=== PATIENT | male | born 1950 | race Caucasian/White ===

== ENCOUNTER 2020-11-20 19:40 | Inpatient (IN) | payer MEDICARE ==
[~2020-11-20] VITALS: Ht 175.3 cm; Wt 72.0 kg
[2020-11-21 01:02] VITALS: BP 158/86
[2020-11-21 06:07] VITALS: BP 149/75
[2020-11-21 18:14] VITALS: BP 125/67
[2020-11-22 06:02] VITALS: BP 150/82
[2020-11-22 17:07] VITALS: BP 117/64
[2020-11-23 05:51] VITALS: BP 146/75
[2020-11-23 07:20] LABS: ALBUMIN 2.8 g/dL (3.4-4.8); POTASSIUM 4.5 mmol/L (3.5-5.1)
[2020-11-23 07:22] LABS: CALCIUM 9.5 mg/dL (8.3-10.5)
[2020-11-23 07:25] LABS: TOTAL BILIRUBIN 0.3 mg/dL (0.2-1.2)
[2020-11-23 07:29] LABS: MAGNESIUM 2.12 mg/dL (1.60-2.60)
[2020-11-23 17:09] VITALS: BP 138/72
[2020-11-24 06:10] VITALS: BP 122/86
[2020-11-24 17:56] VITALS: BP 142/75
[2020-11-25 05:35] VITALS: BP 150/81
[2020-11-25 17:21] VITALS: BP 135/71
[2020-11-26 05:43] VITALS: BP 155/75
[2020-11-26 17:48] VITALS: BP 141/88
[2020-11-27 05:41] VITALS: BP 144/74
[2020-11-27 18:19] VITALS: BP 127/76
[2020-11-28 06:01] VITALS: BP 167/80
[2020-11-28 17:12] VITALS: BP 143/77
[2020-11-29 05:56] VITALS: BP 146/74
[2020-11-29] MEDS ORDERED: ASPIRIN 81M81 MG/TA2 PEG (15:55)
[2020-11-29] MEDS ORDERED: CHILDREN'S160 MG/15 PEG (15:55)
[2020-11-29] MEDS ORDERED: COREG 6.256.25 MG/TA PEG (15:56)
[2020-11-29] MEDS ORDERED: CHILDREN'S100 MG/55 PEG (15:56)
[2020-11-29] MEDS ORDERED: OXYCODONE H5 MG/5 M2 PEG (15:58)
[2020-11-29] MEDS ORDERED: TURMERIC1 POW PEG (15:59)
[2020-11-29] MEDS ORDERED: B COMPLEX1 EACH PEG (16:00)
[2020-11-29 17:08] VITALS: BP 148/93
[2020-11-30 05:42] VITALS: BP 166/84
[2020-11-30 07:21] LABS: ALBUMIN 3.1 g/dL (3.4-4.8)
[2020-11-30 07:22] LABS: POTASSIUM 3.9 mmol/L (3.5-5.1)
[2020-11-30 07:23] LABS: CALCIUM 9.5 mg/dL (8.3-10.5)
[2020-11-30 07:24] LABS: TOTAL PROTEIN 6.2 g/dL (6.2-8.1)
[2020-11-30 07:26] LABS: TOTAL BILIRUBIN 0.4 mg/dL (0.2-1.2)
[2020-11-30 07:31] LABS: MAGNESIUM 2.05 mg/dL (1.60-2.60)
[2020-11-30 17:03] VITALS: BP 168/78
[2020-12-01 05:42] VITALS: BP 163/75
[2020-12-01 15:49] VITALS: BP 151/71
== END 2020-12-01 17:00 | disposition home health service (06) | DRG 947 ==
LOC: MED/SURG 19:40
PROVIDERS: Internal Medicine; ADMIT Family Medicine
DX: R53.81 Other malaise (principal); E43 Unspecified severe protein-calorie malnutrition; C06.89 Malignant neoplasm of overlapping sites of other parts of mouth; I10 Essential (primary) hypertension; K59.00 Constipation, unspecified; R13.12 Dysphagia, oropharyngeal phase; Z93.1 Gastrostomy status; Z93.0 Tracheostomy status; Z87.891 Personal history of nicotine dependence
CPT/HCPCS: A9270

== ENCOUNTER 2022-10-20 16:10 | Inpatient (IN) | payer MEDICARE ==
[~2022-10-20] VITALS: Ht 175.3 cm; Wt 75.5 kg
[~2022-10-20 16:10] MED LIST: ASPIRIN 81M81 MG/TA2 PEG; B COMPLEX1 EACH PEG; CHILDREN'S100 MG/55 PEG; CHILDREN'S160 MG/15 PEG; COREG 6.256.25 MG/TA PEG; OXYCODONE H5 MG/5 M2 PEG; TURMERIC1 POW PEG
[2022-10-20] MEDS ORDERED: LEVOTHYROXIN0.075 MG PO (18:01)
[2022-10-20] MEDS ORDERED: ACETAMINOPHEN325 M1 PEG (18:02)
[2022-10-20] MEDS ORDERED: BACITRACIN1 EACH TP (18:03)
[2022-10-20] MEDS ORDERED: BISACODYL10 M1 RC (18:03)
[2022-10-20] MEDS ORDERED: STOOL SOFT PEG (18:05)
[2022-10-20] MEDS ORDERED: LEVOFLOXACIN PEG (18:06)
[2022-10-20] MEDS ORDERED: ONDANSETRON HYDR4 MG PEG (18:07)
[2022-10-20 18:10] VITALS: BP 149/80
[2022-10-20 18:34] VITALS: BP 149/80
[2022-10-21 05:39] VITALS: BP 177/88
[2022-10-21 08:26] LABS: HEMATOCRIT 27.8 % (42.0-52.0); HEMOGLOBIN 8.7 g/dL (13.5-18.0); MEAN CELL VOLUME 93 fl (78-100); MEAN CORPUSCULAR HEMOGLOBIN 29 pg (27-31); MEAN CORPUSCULAR HGB CONC 31 g/dL (33-37); MEAN PLATELET VOLUME 9.3 fl (7.4-10.4); PLATELET COUNT 377 K/mm3 (130-400); RED BLOOD COUNT 2.98 M/mm3 (4.20-5.60); RED CELL DISTRIBUTION WIDTH 12.6 % (11.5-14.5); WHITE BLOOD COUNT 11.6 K/mm3 (4.8-10.8)
[2022-10-21 08:41] LABS: ALBUMIN 2.9 g/dL (3.4-4.8)
[2022-10-21 08:42] LABS: POTASSIUM 3.9 mmol/L (3.5-5.1)
[2022-10-21 08:43] LABS: CALCIUM 9.3 mg/dL (8.3-10.5)
[2022-10-21 08:44] LABS: TOTAL PROTEIN 6.5 g/dL (6.2-8.1)
[2022-10-21 08:46] LABS: TOTAL BILIRUBIN 0.3 mg/dL (0.2-1.2)
[2022-10-21 08:56] LABS: PH-URINE 6.5 (5.0 - 8.0); URINE APPEARANCE CLOUDY; URINE BILIRUBIN NEGATIVE (NEGATIVE); URINE BLOOD TRACE (NEGATIVE); URINE COLOR YELLOW; URINE GLUCOSE NEGATIVE (NEGATIVE); URINE KETONE NEGATIVE (NEGATIVE); URINE LEUKOCYTE ESTERASE NEGATIVE (NEGATIVE); URINE NITRATE NEGATIVE (NEGATIVE); URINE PROTEIN(semi-quant) NEGATIVE (NEGATIVE); URINE UROBILINOGEN NORMAL (NORMAL); URINE WBC 0-1 /hpf (0-3)
[2022-10-21 10:00] LABS: BAND 7 % (0-10); HYPOCHROMIA 1+; LYMPHOCYTE 11 % (20-51); MONOCYTE 8 % (3-10); NEUTROPHILS 74 % (42-75); OVALOCYTES 1+; POLYCHROMASIA 1+
[2022-10-21 17:03] VITALS: BP 135/70
[2022-10-22 06:27] VITALS: BP 138/81
[2022-10-22 18:03] VITALS: BP 138/70
[2022-10-23 04:10] VITALS: BP 145/81
[2022-10-23 17:40] VITALS: BP 151/64
[2022-10-24 05:43] VITALS: BP 148/72
[2022-10-24 17:30] VITALS: BP 109/64
[2022-10-25 05:53] VITALS: BP 141/61
[2022-10-25 17:07] VITALS: BP 127/89
[2022-10-26 05:28] VITALS: BP 114/64
[2022-10-26 07:25] LABS: BASO # 0.02 K/mm3 (0.02-0.10); EOS # 0.13 K/mm3 (0.04-0.40); EOS % 1.5 % (0.0-4.0); HEMATOCRIT 24.9 % (42.0-52.0); HEMOGLOBIN 7.8 g/dL (13.5-18.0); LYMPH# 0.75 K/mm3 (1.50-4.00); MEAN CELL VOLUME 92 fl (78-100); MEAN CORPUSCULAR HEMOGLOBIN 29 pg (27-31); MEAN CORPUSCULAR HGB CONC 31 g/dL (33-37); MEAN PLATELET VOLUME 9.2 fl (7.4-10.4); MONO # 0.87 K/mm3 (0.20-0.80); NEU # 6.93 K/mm3 (1.40-6.50); PLATELET COUNT 413 K/mm3 (130-400); RED CELL DISTRIBUTION WIDTH 13.3 % (11.5-14.5); WHITE BLOOD COUNT 8.8 K/mm3 (4.8-10.8)
[2022-10-26 07:29] LABS: ALBUMIN 2.7 g/dL (3.4-4.8)
[2022-10-26 07:30] LABS: POTASSIUM 4.2 mmol/L (3.5-5.1)
[2022-10-26 07:32] LABS: TOTAL BILIRUBIN 0.3 mg/dL (0.2-1.2)
[2022-10-26 17:10] VITALS: BP 114/63
[2022-10-27 05:43] LABS: BASO # 0.02 K/mm3 (0.02-0.10); EOS # 0.09 K/mm3 (0.04-0.40); EOS % 0.8 % (0.0-4.0); HEMATOCRIT 27.2 % (42.0-52.0); HEMOGLOBIN 8.4 g/dL (13.5-18.0); LYMPH# 0.86 K/mm3 (1.50-4.00); MEAN CELL VOLUME 94 fl (78-100); MEAN CORPUSCULAR HEMOGLOBIN 29 pg (27-31); MEAN CORPUSCULAR HGB CONC 31 g/dL (33-37); MEAN PLATELET VOLUME 8.9 fl (7.4-10.4); MONO # 0.84 K/mm3 (0.20-0.80); NEU # 8.66 K/mm3 (1.40-6.50); PLATELET COUNT 437 K/mm3 (130-400); RED CELL DISTRIBUTION WIDTH 13.5 % (11.5-14.5); WHITE BLOOD COUNT 10.6 K/mm3 (4.8-10.8)
[2022-10-27 05:51] LABS: ALBUMIN 3.1 g/dL (3.4-4.8)
[2022-10-27 05:52] LABS: POTASSIUM 4.1 mmol/L (3.5-5.1)
[2022-10-27 05:53] LABS: CALCIUM 9.3 mg/dL (8.3-10.5)
[2022-10-27 05:54] LABS: TOTAL PROTEIN 6.7 g/dL (6.2-8.1)
[2022-10-27 05:56] VITALS: BP 160/72
[2022-10-27 05:56] LABS: TOTAL BILIRUBIN 0.3 mg/dL (0.2-1.2)
[2022-10-27 18:10] VITALS: BP 120/61
[2022-10-28 05:52] VITALS: BP 157/79
[2022-10-28 17:10] VITALS: BP 109/67
[2022-10-29 06:03] VITALS: BP 153/82
[2022-10-29 17:09] VITALS: BP 125/75
[2022-10-30 05:44] VITALS: BP 149/74
[2022-10-30 17:50] VITALS: BP 124/73
[2022-10-31 05:47] VITALS: BP 150/77
[2022-10-31 17:27] VITALS: BP 135/73; BP_SYST 133
[2022-11-01 05:31] VITALS: BP 162/72
[2022-11-01 17:40] VITALS: BP 137/64
[2022-11-02 06:03] VITALS: BP 154/81
[2022-11-02 17:05] VITALS: BP 129/76
[2022-11-03 05:36] VITALS: BP 148/74
[2022-11-03 17:03] VITALS: BP 135/79
[2022-11-04 05:35] VITALS: BP 134/83
[2022-11-04] MEDS ORDERED: FERROUS SU220 MG/53 PO (11:25)
[2022-11-04] MEDS ORDERED: ACETAMINOP325 MG/10. PO (11:27)
== END 2022-11-04 12:17 | disposition home or self-care (01) | DRG 948 ==
LOC: MED/SURG 16:10
PROVIDERS: Family Medicine; ADMIT Nurse Practitioner
DX: R53.81 Other malaise (principal); C06.9 Malignant neoplasm of mouth, unspecified; K21.9 Gastro-esophageal reflux disease without esophagitis; I10 Essential (primary) hypertension; E03.9 Hypothyroidism, unspecified; Z93.0 Tracheostomy status; Z93.1 Gastrostomy status; Z87.891 Personal history of nicotine dependence
CPT/HCPCS: A9270; Q9967